=== PATIENT | female | born 1985 | race Asian ===

== ENCOUNTER 2017-02-09 15:32 | Inpatient (IN) | payer SELFPAY ==
[~2017-02-09] VITALS: Ht 161 cm; Wt 59.9 kg
[2017-02-09] MEDS ORDERED: LR 1,000 ML IV ONE (16:43)
[2017-02-09] MEDS ORDERED: CEFAZOLIN 2 GM IVPB PREMIX 50 ML IV ONE (16:45)
[2017-02-09 17:08] LABS: BASOPHILS # (AUTO) 0.1 K/uL (0.0-0.2); EOSINOPHILS # (AUTO) 0.2 K/uL (0.0-0.4); EOSINOPHILS % (AUTO) 3.6 % (0.0-4.0); HEMATOCRIT 33.7 % (36-48); HEMOGLOBIN 11.1 g/dL (12.0-16.0); LYMPHOCYTES # (AUTO) 1.2 K/uL (1.0-5.5); MEAN CORPUSCULAR HEMOGLOBIN 26 pg (27-31); MEAN CORPUSCULAR HGB CONC 33 % (32-36); MEAN CORPUSCULAR VOLUME 80 fL (79.0-98.0); MONOCYTES # (AUTO) 0.4 K/uL (0.0-1.0); MONOCYTES % (AUTO) 6.9 % (1.7-9.3); NEUTROPHILS # (AUTO) 3.9 K/uL (1.8-7.7); NEUTROPHILS % (AUTO) 68.5 % (40.0-70.0); PLATELET COUNT (AUTO) 161 K/uL (130-430); WHITE BLOOD COUNT (AUTO) 5.8 K/uL (4.8-10.8)
[2017-02-09] MEDS ORDERED: OXYTOCIN/NORMAL SALINE 1,000 ML IV ONE (18:44)
[2017-02-09] MEDS ORDERED: SIMETHICONE 80 MG TAB.CHEW PO PRN (18:45)
[2017-02-09] MEDS ORDERED: OXYCODONE/ACETAMINOPHEN 5-325 TABLET PO PRN (18:45)
[2017-02-09] MEDS ORDERED: LANOLIN 7 GM OINT. TP PRN (18:45)
[2017-02-09] MEDS ORDERED: MEASLES,MUMPS&RUBELLA VACC/PF 12500 UNIT/0.5 ML VIAL SUBQ PRN (18:45)
[2017-02-09] MEDS ORDERED: ANUSOL 1 EA SUPP.RECT (PREPARATION H) RC PRN (18:45)
[2017-02-09] MEDS ORDERED: HYDROcodone/ACETAMIN 5-325 MG TAB (NORCO/ VICODIN) PO PRN (18:45)
[2017-02-09] MEDS ORDERED: MEPERIDINE HCL/PF 25 MG/ML DISP.SYRIN IVP PRN (19:45)
[2017-02-09] MEDS ORDERED: ONDANSETRON HCL 4 MG/2 ML VIAL IVP PRN (19:45)
[2017-02-09] MEDS ORDERED: MORPHINE SULFATE 10MG/10ML PF AMP SP SCH (19:45)
[2017-02-09] MEDS ORDERED: NALOXONE HCL 0.4 MG/ML AMP (NARCAN) IVP PRN (19:45)
[2017-02-09] MEDS ORDERED: METOCLOPRAMIDE HCL 10 MG/2 ML VIAL IVP PRN (19:45)
[2017-02-09] MEDS ORDERED: MEPERIDINE HCL/PF 50 MG/ML AMP IVP PRN ×2 (19:45)
[2017-02-09] MEDS ORDERED: LR 1,000 ML IV SCH (19:45)
[2017-02-09] MEDS ORDERED: DIPHENHYDRAMINE INJ 50 MG/ML VIAL IM PRN (19:45)
[2017-02-09] MEDS ORDERED: KETOROLAC TROMETHAMINE 60 MG/2 ML VIAL IM PRN (19:45)
[2017-02-09 20:10] VITALS: BP_SYST 112
[2017-02-09] MEDS ORDERED: TEMAZEPAM 15 MG CAPSULE PO PRN (21:00)
[2017-02-10] MEDS: CEFAZOLIN 1 GM IVPB PREMIX 50 ML IV SCH ×3 (00:03→12:58)
[2017-02-10] MEDS ORDERED: IBUPROFEN 600 MG TABLET PO SCH (06:00)
[2017-02-10] MEDS ORDERED: OXYTOCIN/NORMAL SALINE 1,000 ML IV ONE (06:23)
[2017-02-10 07:38] LABS: BASOPHILS % (AUTO) 0.3 % (0.0-2.0); EOSINOPHILS # (AUTO) 0.1 K/uL (0.0-0.4); EOSINOPHILS % (AUTO) 1.2 % (0.0-4.0); HEMATOCRIT 28.9 % (36-48); HEMOGLOBIN 9.6 g/dL (12.0-16.0); LYMPHOCYTES # (AUTO) 1.1 K/uL (1.0-5.5); LYMPHOCYTES % (AUTO) 13.2 % (20.5-51.5); MEAN CORPUSCULAR HEMOGLOBIN 27 pg (27-31); MEAN CORPUSCULAR HGB CONC 33 % (32-36); MEAN CORPUSCULAR VOLUME 81 fL (79.0-98.0); MONOCYTES # (AUTO) 0.3 K/uL (0.0-1.0); MONOCYTES % (AUTO) 3.2 % (1.7-9.3); NEUTROPHILS % (AUTO) 82.1 % (40.0-70.0); PLATELET COUNT (AUTO) 132 K/uL (130-430); RED BLOOD CELL COUNT(AUTO) 3.56 MIL/uL (4.2-6.2); RED CELL DISTRIBUTION WIDTH 14.1 % (9.0-15.0)
[2017-02-10 07:54] LABS: WHITE BLOOD COUNT (AUTO) 8.5 K/uL (4.8-10.8)
[2017-02-10] MEDS: DOCUSATE SODIUM 100 MG CAPSULE PO PRN (15:34)
[2017-02-10] MEDS: OXYCODONE/ACETAMINOPHEN 5-325 TABLET PO PRN ×2 (17:40→20:17)
[2017-02-10] MEDS: IBUPROFEN 600 MG TABLET PO SCH (18:23)
[2017-02-11] MEDS: IBUPROFEN 600 MG TABLET PO SCH ×4 (00:18→17:50)
[2017-02-11] MEDS ORDERED: IBUPROFEN 600 MG TABLET ONE (05:25)
[2017-02-11] MEDS: DOCUSATE SODIUM 100 MG CAPSULE PO PRN (17:50)
[2017-02-11] MEDS: OXYCODONE/ACETAMINOPHEN 5-325 TABLET PO PRN (23:24)
[2017-02-12] MEDS: IBUPROFEN 600 MG TABLET PO SCH ×2 (00:14→06:00)
== END 2017-02-12 16:05 | disposition home or self-care (01) | DRG 765 ==
LOC: SPU 15:32
PROVIDERS: ADMIT Obstetrics & Gynecology; ATTEND Obstetrics & Gynecology
PROC: 10D00Z1 Extraction of Products of Conception, Low, Open Approach (ICD-10-PCS; principal; 2017-02-09 19:00)
DX: O42.92 Full-term premature rupture of membranes, unspecified as to length of time between rupture and onset of labor (principal); O41.03X0 Oligohydramnios, third trimester, not applicable or unspecified; Z37.0 Single live birth; Z3A.40 40 weeks gestation of pregnancy; Z90.49 Acquired absence of other specified parts of digestive tract
CPT/HCPCS: 36415; 81002-TC; 85025; 86886; 86900; 86901; 94760; J0690; J2590; J7120